=== PATIENT | female | born 1940 | race Caucasian/White ===

== ENCOUNTER 2025-03-01 09:12 | Day surgery (SDC) | payer MEDICARE ==
[~2025-03-01] VITALS: Ht 154.9 cm; Wt 76.1 kg
[~2025-03-01 09:12] MED LIST: ATOR1TAB21 PO; D 50CAP3 PO; GLIM4TAB5 PO; JARD1TAB PO; LEXA1TAB2 PO; MELA5TAB21 PO; MEMA1TAB3 PO; MIDAZOLAM INJ 2 MG/2 ML VIAL As Ordered ONE; MONT10TA97 PO; PHENYLEPHRINE 10% OPHTH SOL 5ML OS PRN; RISP-105 PO; TOLT4CAP3 PO; VALS1TAB66 PO
[2025-03-01] MEDS: OFLOXACIN 0.3 % (OCUFLOX) OPTH SOL 5ML OS ONE (10:05)
[2025-03-01] MEDS: TROPICAMIDE 1% OPHTH SOLN 15ML OS SCH (10:05)
[2025-03-01] MEDS: CYCLOPENTOLATE 1% OPHTH SOLN 2 ML BTL OS SCH (10:05)
[2025-03-01] MEDS: LIDOCAINE 3.5% 1 ML OPHTH TOPICAL GEL OU ONE (10:05)
[2025-03-01] MEDS: PHENYLEPHRINE 2.5% OPHTH SOL 2ML OS SCH (10:05)
[2025-03-01] MEDS: CEFUROXIME 1 MG/0.1 ML INTRACAMERAL INJ As Ordered ONE (10:57)
[2025-03-01] MEDS: BSS IRRIG/VANCO(10MG)/TOBRA(5MG)/EPINEPH(1:1000-0.5CC)500ML BAG-ORONLY As Ordered ONE (10:57)
[2025-03-01] MEDS: LIDOCAINE 1% SDV 5 ML VIAL As Ordered ONE (10:57)
[2025-03-01 11:11] VITALS: BP 154/75; TEMP 97.4; O2SAT 99
== END 2025-03-01 11:28 | disposition home or self-care (01) ==
LOC: M SDC 09:12
PROVIDERS: ATTEND Ophthalmology
DX: H25.12 Age-related nuclear cataract, left eye (principal); H57.03 Miosis
CPT/HCPCS: 66984; J0697; J3010; V2632